=== PATIENT | female | born 1940 | race Two or more races ===

== ENCOUNTER 2017-11-11 09:07 | Outpatient (CLI) | payer OTHER ==
[~2017-11-11 09:07] MED LIST: CALTRATE 600 W-1 TAB PO; DAFLONEX PO; INTRINSI B12-F1 EACH; PRILOSEC20 MG PO; WARFARIN PO; ZOCOR20 MG
== END 2017-11-11 09:26 | disposition home or self-care (01) ==
LOC: LAB 09:07
DX: D68.61 Antiphospholipid syndrome (principal); Z80.3 Family history of malignant neoplasm of breast; E72.11 Homocystinuria; E72.12 Methylenetetrahydrofolate reductase deficiency; E77.8 Other disorders of glycoprotein metabolism; I80.201 Phlebitis and thrombophlebitis of unspecified deep vessels of right lower extremity; I80.291 Phlebitis and thrombophlebitis of other deep vessels of right lower extremity; Q60.0 Renal agenesis, unilateral; Q50.01 Congenital absence of ovary, unilateral; D50.8 Other iron deficiency anemias; D51.8 Other vitamin B12 deficiency anemias; I10 Essential (primary) hypertension; D68.8 Other specified coagulation defects

== ENCOUNTER 2018-03-14 07:11 | Outpatient (CLI) | payer OTHER | END 2018-03-14 07:54 | disposition home or self-care (01) | LOC: LAB 07:11 | DX: Z80.3 Family history of malignant neoplasm of breast (principal); E72.11 Homocystinuria; E72.12 Methylenetetrahydrofolate reductase deficiency; E77.8 Other disorders of glycoprotein metabolism; I80.201 Phlebitis and thrombophlebitis of unspecified deep vessels of right lower extremity; I80.291 Phlebitis and thrombophlebitis of other deep vessels of right lower extremity; Q60.0 Renal agenesis, unilateral; Q50.01 Congenital absence of ovary, unilateral; C16.9 Malignant neoplasm of stomach, unspecified; C25.9 Malignant neoplasm of pancreas, unspecified; C54.1 Malignant neoplasm of endometrium; C56.1 Malignant neoplasm of right ovary; C18.9 Malignant neoplasm of colon, unspecified; R19.5 Other fecal abnormalities ==

== ENCOUNTER 2018-03-17 08:54 | Outpatient (CLI) | payer OTHER | END 2018-03-17 09:06 | disposition home or self-care (01) | LOC: LAB 08:54 | DX: Z80.3 Family history of malignant neoplasm of breast (principal); E72.11 Homocystinuria; E72.12 Methylenetetrahydrofolate reductase deficiency; E77.9 Disorder of glycoprotein metabolism, unspecified; I80.291 Phlebitis and thrombophlebitis of other deep vessels of right lower extremity; Q60.0 Renal agenesis, unilateral; Q50.01 Congenital absence of ovary, unilateral; C16.9 Malignant neoplasm of stomach, unspecified; C25.9 Malignant neoplasm of pancreas, unspecified; C54.1 Malignant neoplasm of endometrium; C56.1 Malignant neoplasm of right ovary; C18.9 Malignant neoplasm of colon, unspecified; R19.5 Other fecal abnormalities ==

== ENCOUNTER 2018-04-29 08:53 | Outpatient (CLI) | payer OTHER | END 2018-04-29 09:05 | disposition home or self-care (01) | LOC: MAMO-SONO 08:53 | DX: Z12.31 Encounter for screening mammogram for malignant neoplasm of breast (principal); Z87.898 Personal history of other specified conditions; N60.11 Diffuse cystic mastopathy of right breast; N60.12 Diffuse cystic mastopathy of left breast; R10.2 Pelvic and perineal pain ==

== ENCOUNTER → 2018-05-06 | Outpatient (CLI) | payer OTHER | END | disposition home or self-care (01) | LOC: NUCLEAR 04-29 11:30 | DX: M81.0 Age-related osteoporosis without current pathological fracture (principal) ==

== ENCOUNTER → 2018-08-18 07:01 | Outpatient (CLI) | payer OTHER | END | disposition home or self-care (01) | LOC: LAB 08-17 12:45 | DX: E72.12 Methylenetetrahydrofolate reductase deficiency (principal); E72.11 Homocystinuria; B39.4 Histoplasmosis capsulati, unspecified; A31.0 Pulmonary mycobacterial infection; Z80.3 Family history of malignant neoplasm of breast; E77.9 Disorder of glycoprotein metabolism, unspecified; I80.201 Phlebitis and thrombophlebitis of unspecified deep vessels of right lower extremity; I80.291 Phlebitis and thrombophlebitis of other deep vessels of right lower extremity; Q60.0 Renal agenesis, unilateral; Q50.01 Congenital absence of ovary, unilateral; D50.8 Other iron deficiency anemias; D51.8 Other vitamin B12 deficiency anemias; I10 Essential (primary) hypertension; R97.0 Elevated carcinoembryonic antigen [CEA] ==

== ENCOUNTER 2018-09-13 07:24 | Emergency (ER) | payer OTHER ==
[~2018-09-13] VITALS: Ht 157.5 cm; Wt 72.6 kg
== END 2018-09-13 11:32 | disposition home or self-care (01) ==
LOC: ER 07:24
DX: S05.11XA Contusion of eyeball and orbital tissues, right eye, initial encounter (principal); W18.09XA Striking against other object with subsequent fall, initial encounter; Y93.89 Activity, other specified; Y92.89 Other specified places as the place of occurrence of the external cause; Y99.8 Other external cause status

== ENCOUNTER 2019-02-16 08:49 | Outpatient (CLI) | payer OTHER | END 2019-02-16 09:05 | disposition home or self-care (01) | LOC: RAD 08:49 | DX: R05 Cough (principal) ==

== ENCOUNTER 2020-07-25 20:31 | Inpatient (IN) | payer OTHER ==
[~2020-07-25] VITALS: Ht 157.5 cm; Wt 72.6 kg
--- NOTE | 2020-07-25 21:15 | NUR ---
PT ALERTA Y ORIENTADA X3 ESFERAS SE LE ORIENTA SOBRE TX Y REFIERE ENTEDER. SE ISAAC MUESTRAS DE JOSELUIS CON TECNICAS ASEPTICAS. PT TOLERA TX.
[2020-07-25] MEDS ORDERED: OMEPRAZOLE 10 MG (21:57)
[2020-07-25] MEDS ORDERED: [UNRECOGNIZED DRUG - OTHER] (21:58)
[2020-07-25] MEDS ORDERED: VITAMINA C (21:59)
[2020-07-25] MEDS ORDERED: [UNRECOGNIZED DRUG - REMARK] (22:01)
--- NOTE | 2020-07-25 22:02 | NUR ---
PTE SE RECIBE POR FIEBRE DOLOR EN EL CUERPO Y CONGESTION NASAL REFIERE PARAMEDOCO FAMILIAR Y PTE.
--- NOTE | 2020-07-25 23:10 | NUR ---
PACIENTE ALERTA Y ORIENTADA X3. EN ARISTIDES CON BARANDAS ELEVADAS ACOMPANADA POR FAMILIAR. PENDIENTE ENTREGA DE MUESTRA DE ORINA. SE MANTIENE BAJO OBSERVACION POR CAMBIOS SIGNIFICATIVOS.
--- NOTE | 2020-07-26 03:10 | NUR ---
PACIENTE ALERTA Y ORIENTADA X3. MIS. THAPA ORIENTA A PACIENTE Y FAMILIAR SOBRE TX A RECIBIR Y REFIRIO ENTENDER. ADMINISTRO MEDICAMENTO ORDENADO POR . RECOLECTO MUESTRA DE ORINA. SE MANTIENE BAJO OBSERVACION POR CAMBIO SIGNIFICATIVOS.
--- NOTE | 2020-07-26 07:21 | NUR ---
SE RECIBE PACIENTE FEMENINA ALERTA Y ORIENTADA EN [place] ESFER[place]. PACIENTE PENDIENTE A CONSULTA CON DR. DENISSE HAMEED. PACIENTE CON VENOPUNCION PATENTE Y RANDY DE DOLOR AL MOMENTO.
[2020-07-27] MEDS ORDERED: VASOFLEX TABLE1 EACH (11:53)
[2020-07-27] MEDS ORDERED: FLONASE16 GM (11:53)
[2020-07-27] MEDS ORDERED: LORATADINE10 MG (11:53)
[2020-07-27] MEDS ORDERED: FOLIC ACID1 MG (11:53)
[2020-07-27] MEDS ORDERED: SIMVASTATIN20 MG (11:53)
[2020-07-27] MEDS ORDERED: NEOTUSS PLUS L474 ML (11:53)
[2020-07-27] MEDS ORDERED: WARFARIN SODIUM6 MG (11:54)
[2020-07-27] MEDS ORDERED: VITAMIN C100 MG (11:55)
== END 2020-07-28 18:45 | disposition home or self-care (01) | DRG 690 ==
LOC: ER 20:31 → SEC-K 07-26 11:31 → MEDJ 07-26 11:31 → MEDI 07-27 13:16 → SEC-K 07-27 13:31 → MEDJ 07-27 17:21
PROVIDERS: ADMIT Internal Medicine; ATTEND Internal Medicine
PROC: BW28ZZZ Computerized Tomography (CT Scan) of Head (ICD-10-PCS; principal; 2020-07-26)
PROC: BW24ZZZ Computerized Tomography (CT Scan) of Chest and Abdomen (ICD-10-PCS; 2020-07-26)
PROC: BT4JZZZ Ultrasonography of Kidneys and Bladder (ICD-10-PCS; 2020-07-26)
DX: N10 Acute pyelonephritis (principal); D68.69 Other thrombophilia; B96.20 Unspecified Escherichia coli [E. coli] as the cause of diseases classified elsewhere; R53.81 Other malaise; E78.00 Pure hypercholesterolemia, unspecified

== ENCOUNTER 2020-09-19 06:55 | Outpatient (CLI) | payer OTHER ==
[~2020-09-19 06:55] MED LIST changes: +FLONASE16 GM; +FOLIC ACID1 MG; +LORATADINE10 MG; +NEOTUSS PLUS L474 ML; +OMEPRAZOLE 10 MG; +SIMVASTATIN20 MG; +VASOFLEX TABLE1 EACH; +VITAMIN C100 MG; +VITAMINA C; +WARFARIN SODIUM6 MG; +[UNRECOGNIZED DRUG - OTHER]; +[UNRECOGNIZED DRUG - REMARK]
== END 2020-09-19 07:00 | disposition home or self-care (01) ==
LOC: LAB 06:55
PROVIDERS: ATTEND Internal Medicine Hematology & Oncology
DX: D68.61 Antiphospholipid syndrome (principal); Z80.3 Family history of malignant neoplasm of breast; E72.12 Methylenetetrahydrofolate reductase deficiency; E77.9 Disorder of glycoprotein metabolism, unspecified; I80.201 Phlebitis and thrombophlebitis of unspecified deep vessels of right lower extremity; I80.291 Phlebitis and thrombophlebitis of other deep vessels of right lower extremity; Q60.0 Renal agenesis, unilateral; Q50.01 Congenital absence of ovary, unilateral

== ENCOUNTER 2020-11-24 08:23 | Outpatient (CLI) | payer OTHER | END 2020-11-24 08:24 | disposition home or self-care (01) | LOC: NUCLEAR 08:23 | PROVIDERS: ATTEND Internal Medicine | DX: I87.2 Venous insufficiency (chronic) (peripheral) (principal) ==

== ENCOUNTER 2021-01-15 14:30 | Emergency (ER) | payer OTHER ==
[~2021-01-15] VITALS: Ht 157.5 cm; Wt 73.5 kg
== END 2021-01-15 20:28 | disposition home or self-care (01) ==
LOC: ER 14:30
DX: N39.0 Urinary tract infection, site not specified (principal); R10.13 Epigastric pain; R10.32 Left lower quadrant pain

== ENCOUNTER → 2021-07-09 09:00 | Outpatient (CLI) | payer OTHER | END | disposition home or self-care (01) | LOC: LAB 09:00 | PROVIDERS: ATTEND Internal Medicine Hematology & Oncology | DX: D50.8 Other iron deficiency anemias (principal); I10 Essential (primary) hypertension; R74.02 Elevation of levels of lactic acid dehydrogenase [LDH]; K76.89 Other specified diseases of liver; E55.9 Vitamin D deficiency, unspecified; D68.8 Other specified coagulation defects; D68.59 Other primary thrombophilia; E72.11 Homocystinuria; R97.0 Elevated carcinoembryonic antigen [CEA]; R97.8 Other abnormal tumor markers; Z80.3 Family history of malignant neoplasm of breast; E72.12 Methylenetetrahydrofolate reductase deficiency; E77.9 Disorder of glycoprotein metabolism, unspecified; I80.201 Phlebitis and thrombophlebitis of unspecified deep vessels of right lower extremity; I80.291 Phlebitis and thrombophlebitis of other deep vessels of right lower extremity; Q60.0 Renal agenesis, unilateral; Q50.01 Congenital absence of ovary, unilateral ==

== ENCOUNTER 2021-08-10 07:43 | Outpatient (CLI) | payer OTHER | END 2021-08-10 07:46 | disposition home or self-care (01) | LOC: SONOGRAMA 07:43 | PROVIDERS: ATTEND Internal Medicine | DX: Z87.440 Personal history of urinary (tract) infections (principal) ==

== ENCOUNTER → 2021-11-03 11:32 | Outpatient (CLI) | payer OTHER | END | disposition home or self-care (01) | LOC: LAB 11:32 | PROVIDERS: ATTEND Internal Medicine | DX: I82.891 Chronic embolism and thrombosis of other specified veins (principal) ==

== ENCOUNTER → 2021-11-03 | Outpatient (CLI) | payer OTHER | END | disposition home or self-care (01) | LOC: RAD 10:57 | PROVIDERS: ATTEND Internal Medicine | DX: M25.561 Pain in right knee (principal) ==

== ENCOUNTER 2022-03-01 09:31 | Outpatient (CLI) | payer OTHER | END 2022-03-01 09:37 | disposition home or self-care (01) | LOC: SONOGRAMA 09:31 | PROVIDERS: ATTEND Internal Medicine Hematology & Oncology | DX: E04.2 Nontoxic multinodular goiter (principal); Z80.3 Family history of malignant neoplasm of breast; D68.61 Antiphospholipid syndrome; E72.12 Methylenetetrahydrofolate reductase deficiency; E77.9 Disorder of glycoprotein metabolism, unspecified; I80.201 Phlebitis and thrombophlebitis of unspecified deep vessels of right lower extremity; I80.291 Phlebitis and thrombophlebitis of other deep vessels of right lower extremity; Q60.0 Renal agenesis, unilateral; Q50.01 Congenital absence of ovary, unilateral ==

== ENCOUNTER → 2022-07-01 07:26 | Outpatient (CLI) | payer OTHER ==
[~2022-07-01 07:26] MED LIST changes: +TUSNEL DIABETI118 ML; +WARFARIN SODIUM1 MG
== END | disposition home or self-care (01) ==
LOC: LAB 07:26
PROVIDERS: ATTEND Internal Medicine Hematology & Oncology
DX: D68.8 Other specified coagulation defects (principal)

== ENCOUNTER 2022-07-06 10:14 | Outpatient (CLI) | payer OTHER | END 2022-07-06 10:24 | disposition home or self-care (01) | LOC: RAD 10:14 | PROVIDERS: ATTEND Internal Medicine Hematology & Oncology | DX: S79.821A Other specified injuries of right thigh, initial encounter (principal); Z80.3 Family history of malignant neoplasm of breast; E72.11 Homocystinuria; E72.12 Methylenetetrahydrofolate reductase deficiency; E77.9 Disorder of glycoprotein metabolism, unspecified; I80.201 Phlebitis and thrombophlebitis of unspecified deep vessels of right lower extremity; I80.291 Phlebitis and thrombophlebitis of other deep vessels of right lower extremity; Q60.0 Renal agenesis, unilateral; Q50.01 Congenital absence of ovary, unilateral ==

== ENCOUNTER → 2022-07-06 11:05 | Outpatient (CLI) | payer OTHER | END | disposition home or self-care (01) | LOC: LAB 11:05 | PROVIDERS: ATTEND Internal Medicine Hematology & Oncology | DX: D68.8 Other specified coagulation defects (principal) ==

== ENCOUNTER 2022-07-20 10:41 | Outpatient (CLI) | payer OTHER | END 2022-07-20 10:42 | disposition home or self-care (01) | LOC: LAB 10:41 | PROVIDERS: ATTEND Internal Medicine Hematology & Oncology | DX: Z80.3 Family history of malignant neoplasm of breast (principal); D68.61 Antiphospholipid syndrome; E77.9 Disorder of glycoprotein metabolism, unspecified; I80.201 Phlebitis and thrombophlebitis of unspecified deep vessels of right lower extremity; I80.291 Phlebitis and thrombophlebitis of other deep vessels of right lower extremity; Q30.0 Choanal atresia; Q50.01 Congenital absence of ovary, unilateral; R97.0 Elevated carcinoembryonic antigen [CEA]; R97.8 Other abnormal tumor markers; K76.89 Other specified diseases of liver; D50.8 Other iron deficiency anemias; E55.9 Vitamin D deficiency, unspecified; R74.02 Elevation of levels of lactic acid dehydrogenase [LDH]; D68.8 Other specified coagulation defects ==

== ENCOUNTER 2022-07-22 08:35 | Emergency (ER) | payer OTHER ==
[~2022-07-22] VITALS: Ht 157.5 cm; Wt 72.6 kg
[2022-07-22] MEDS ORDERED: NORFLEX100MG PO (11:52)
== END 2022-07-22 12:31 | disposition home or self-care (01) ==
LOC: ER 08:35
DX: M54.9 Dorsalgia, unspecified (principal)

== ENCOUNTER → 2022-07-25 11:52 | Outpatient (CLI) | payer OTHER ==
[~2022-07-25 11:52] MED LIST changes: +NORFLEX100MG PO
== END | disposition home or self-care (01) ==
LOC: LAB 11:52
PROVIDERS: ATTEND Internal Medicine Hematology & Oncology
DX: D68.8 Other specified coagulation defects (principal)

== ENCOUNTER → 2022-08-25 | Emergency (ER) | payer OTHER ==
[~2022-08-25] VITALS: Ht 154.9 cm; Wt 73.0 kg
[~2022-08-25] MED LIST changes: +FOLIC ACID1 MG PO; +PANTOPRAZOLE SO40 MG PO; +SIMVASTATIN20 MG PO; +WARFARIN SODIUM6 MG PO
== END | disposition home or self-care (01) ==
LOC: ER 15:53
DX: D68.318 Other hemorrhagic disorder due to intrinsic circulating anticoagulants, antibodies, or inhibitors (principal); M79.641 Pain in right hand

== ENCOUNTER 2022-10-11 10:07 | Emergency (ER) | payer OTHER ==
[~2022-10-11] VITALS: Ht 157.5 cm; Wt 72.6 kg
[2022-10-11] MEDS ORDERED: WARFARIN SODIUM5 MG PO (10:48)
[2022-10-11] MEDS ORDERED: VASOFLEX D1 CA1 EACH PO (10:49)
[2022-10-11] MEDS ORDERED: INTEGRA F CAPS1 EAC1 PO (10:49)
[2022-10-11] MEDS ORDERED: [UNRECOGNIZED DRUG - OTHER] (10:49)
== END 2022-10-11 16:10 | disposition home or self-care (01) ==
LOC: ER 10:07
DX: K44.9 Diaphragmatic hernia without obstruction or gangrene (principal); R53.81 Other malaise; I10 Essential (primary) hypertension; E11.9 Type 2 diabetes mellitus without complications

== ENCOUNTER 2022-10-15 08:54 | Emergency (ER) | payer OTHER ==
[~2022-10-15] VITALS: Ht 154.9 cm; Wt 72.6 kg
[~2022-10-15 08:54] MED LIST changes: +INTEGRA F CAPS1 EAC1 PO; +VASOFLEX D1 CA1 EACH PO; +WARFARIN SODIUM5 MG PO; +[UNRECOGNIZED DRUG - OTHER]
== END 2022-10-15 13:10 | disposition home or self-care (01) ==
LOC: ER 08:54
DX: R05.9 Cough, unspecified (principal); Z86.72 Personal history of thrombophlebitis; K44.9 Diaphragmatic hernia without obstruction or gangrene; J44.9 Chronic obstructive pulmonary disease, unspecified

== ENCOUNTER 2022-10-18 16:55 | Emergency (ER) | payer OTHER ==
[~2022-10-18] VITALS: Ht 162.6 cm; Wt 74.8 kg
[2022-10-18] MEDS ORDERED: VASOFLEX D1 CA1 EACH PO (17:08)
== END 2022-10-18 23:17 | disposition home or self-care (01) ==
LOC: ER 16:55
DX: U07.1 COVID-19 (principal); Z86.72 Personal history of thrombophlebitis; Z86.711 Personal history of pulmonary embolism

== ENCOUNTER 2022-11-16 09:46 | Outpatient (CLI) | payer OTHER | END 2022-11-16 09:47 | disposition home or self-care (01) | LOC: LAB 09:46 | PROVIDERS: ATTEND Internal Medicine Hematology & Oncology | DX: D68.8 Other specified coagulation defects (principal); D50.8 Other iron deficiency anemias; I10 Essential (primary) hypertension; R74.02 Elevation of levels of lactic acid dehydrogenase [LDH]; K76.89 Other specified diseases of liver; D51.8 Other vitamin B12 deficiency anemias; E72.11 Homocystinuria; Z80.3 Family history of malignant neoplasm of breast; E77.9 Disorder of glycoprotein metabolism, unspecified; I80.201 Phlebitis and thrombophlebitis of unspecified deep vessels of right lower extremity; I80.291 Phlebitis and thrombophlebitis of other deep vessels of right lower extremity; Q60.0 Renal agenesis, unilateral; Q50.01 Congenital absence of ovary, unilateral ==

== ENCOUNTER 2022-12-27 10:32 | Outpatient (CLI) | payer OTHER | END 2022-12-27 10:42 | disposition home or self-care (01) | LOC: LAB 10:32 | PROVIDERS: ATTEND Internal Medicine Hematology & Oncology | DX: D68.8 Other specified coagulation defects (principal); F80.9 Developmental disorder of speech and language, unspecified ==

== ENCOUNTER 2023-01-04 10:27 | Emergency (ER) | payer OTHER ==
[~2023-01-04] VITALS: Ht 167.6 cm; Wt 68.0 kg
== END 2023-01-04 20:19 | disposition home or self-care (01) ==
LOC: ER 10:27
DX: R55 Syncope and collapse (principal); Z20.822 Contact with and (suspected) exposure to COVID-19

== ENCOUNTER 2023-02-03 00:35 | Emergency (ER) | payer OTHER ==
[~2023-02-03] VITALS: Ht 152.4 cm; Wt 72.6 kg
== END 2023-02-03 08:46 ==
LOC: ER 00:35
PROVIDERS: General Practice
DX: R04.2 Hemoptysis (principal)

== ENCOUNTER 2023-03-03 15:59 | Emergency (ER) | payer OTHER ==
[~2023-03-03] VITALS: Ht 162.6 cm; Wt 72.6 kg
[2023-03-03] MEDS ORDERED: JANTOVEN4 MG PO (16:46)
[2023-03-03 18:49] LABS: HEMOGLOBIN 11.7 g/dL (12.0-15.00); MEAN CELL VOLUME 90.8 fL (80.00-100.00); MEAN CORPUSCULAR HEMOGLOBIN 30.3 pg (27.00-32.0); MEAN CORPUSCULAR HGB CONC 33.4 g/dl (32.0-36.0); PLATELET COUNT 414 K/uL (150-450); RED BLOOD COUNT 3.86 M/uL (4.00-6.00); RED CELL DISTRIBUTION WIDTH 15.7 % (11.5-14.5)
[2023-03-03 19:13] LABS: ALBUMIN 3.3 gm/dL (3.4-5.0); BILIRUBIN TOTAL 0.36 mg/dL (0.3-1.2); CALCIUM 9.2 mg/dL (8.5-10.1); CREATININE SERUM 0.79 mg/dL (0.55-1.02); GFR 69.5; GLOBULINA 4.4 G/DL (2.4-3.5); POTASSIUM 4.04 mEq/L (3.5-5.1); TOTAL PROTEIN 7.7 gm/dL (6.4-8.2)
[2023-03-03] MEDS ORDERED: LEVSIN/SL0.125 MG SL (19:19)
[2023-03-03 21:02] LABS: INR 2.04; PARTIAL THROMBOPLASTIN TIME 37.4 SECONDS (22.0-34.0)
[2023-03-03 21:04] LABS: ob NEGATIVE (NEGATIVE)
[2023-03-03 21:05] LABS: PROTHROMBIN TIME 20.3 SECONDS (9.0-11.5)
== END 2023-03-03 22:35 | disposition home or self-care (01) ==
LOC: ER 16:00
PROVIDERS: General Practice
DX: K92.1 Melena (principal); K92.2 Gastrointestinal hemorrhage, unspecified

== ENCOUNTER 2023-05-03 15:32 | Emergency (ER) | payer OTHER ==
[~2023-05-03] VITALS: Ht 157.5 cm; Wt 81.6 kg
[~2023-05-03 15:32] MED LIST changes: +JANTOVEN4 MG PO; +LEVSIN/SL0.125 MG SL
[2023-05-03 17:55] LABS: HEMATOCRIT 34.8 % (36.0-45.00); HEMOGLOBIN 11.2 g/dL (12.0-15.00); MEAN CORPUSCULAR HEMOGLOBIN 28.6 pg (27.00-32.0); MEAN CORPUSCULAR HGB CONC 32.2 g/dl (32.0-36.0); PLATELET COUNT 482 K/uL (150-450); RED BLOOD COUNT 3.91 M/uL (4.00-6.00)
[2023-05-03 18:23] LABS: ALBUMIN 3.3 gm/dL (3.4-5.0); BILIRUBIN TOTAL 0.32 mg/dL (0.3-1.2); CALCIUM 9.2 mg/dL (8.5-10.1); CREATININE SERUM 0.93 mg/dL (0.55-1.02); GFR 57.58; GLOBULINA 4.5 G/DL (2.4-3.5); POTASSIUM 4.14 mEq/L (3.5-5.1); TOTAL PROTEIN 7.8 gm/dL (6.4-8.2)
== END 2023-05-03 21:20 | disposition home or self-care (01) ==
LOC: ER 15:32
PROVIDERS: General Practice
DX: K52.89 Other specified noninfective gastroenteritis and colitis (principal); Z20.822 Contact with and (suspected) exposure to COVID-19

== ENCOUNTER 2023-06-23 08:40 | Emergency (ER) | payer OTHER ==
[~2023-06-23] VITALS: Ht 160 cm; Wt 65.8 kg
[2023-06-23 10:17] LABS: HEMATOCRIT 30.1 % (36.0-45.00); HEMOGLOBIN 9.8 g/dL (12.0-15.00); MEAN CELL VOLUME 86.4 fL (80.00-100.00); MEAN CORPUSCULAR HEMOGLOBIN 28.2 pg (27.00-32.0); MEAN CORPUSCULAR HGB CONC 32.6 g/dl (32.0-36.0); PLATELET COUNT 363 K/uL (150-450); RED BLOOD COUNT 3.48 M/uL (4.00-6.00); RED CELL DISTRIBUTION WIDTH 16.8 % (11.5-14.5)
[2023-06-23 10:49] LABS: BILIRUBIN TOTAL 0.47 mg/dL (0.3-1.2); CALCIUM 8.7 mg/dL (8.5-10.1); CREATININE SERUM 0.72 mg/dL (0.55-1.02); GFR 77.36; GLOBULINA 3.9 G/DL (2.4-3.5); POTASSIUM 3.93 mEq/L (3.5-5.1); TOTAL PROTEIN 6.9 gm/dL (6.4-8.2)
[2023-06-23 10:51] LABS: INR 1.99; PARTIAL THROMBOPLASTIN TIME 36.9 SECONDS (22.0-34.0)
[2023-06-23 10:52] LABS: PROTHROMBIN TIME 19.9 SECONDS (9.0-11.5)
== END 2023-06-23 18:48 | disposition home or self-care (01) ==
LOC: ER 08:40
PROVIDERS: Emergency Medicine
DX: R42 Dizziness and giddiness (principal); D86.89 Sarcoidosis of other sites; D68.8 Other specified coagulation defects; D64.9 Anemia, unspecified; J40 Bronchitis, not specified as acute or chronic; Z20.822 Contact with and (suspected) exposure to COVID-19

== ENCOUNTER → 2023-07-05 11:01 | Outpatient (CLI) | payer OTHER ==
[2023-07-05 12:40] LABS: HEMATOCRIT 33.9 % (36.0-45.00); HEMOGLOBIN 11.1 g/dL (12.0-15.00); MEAN CELL VOLUME 85.1 fL (80.00-100.00); MEAN CORPUSCULAR HEMOGLOBIN 27.8 pg (27.00-32.0); MEAN CORPUSCULAR HGB CONC 32.6 g/dl (32.0-36.0); PLATELET COUNT 426 K/uL (150-450); RED BLOOD COUNT 3.98 M/uL (4.00-6.00); RED CELL DISTRIBUTION WIDTH 17.6 % (11.5-14.5)
[2023-07-05 12:49] LABS: % SATURACION 16.2 % (15-50); FERRITIN 56.7 NG/ML (8-252)
[2023-07-05 13:56] LABS: INR 2.96
[2023-07-05 14:25] LABS: PROTHROMBIN TIME 28.7 SECONDS (9.0-11.5)
== END | disposition home or self-care (01) ==
LOC: LAB 11:01
PROVIDERS: ATTEND Internal Medicine Hematology & Oncology
DX: D64.9 Anemia, unspecified (principal); E83.10 Disorder of iron metabolism, unspecified; Z12.11 Encounter for screening for malignant neoplasm of colon; D68.8 Other specified coagulation defects

== ENCOUNTER 2023-08-17 08:03 | Emergency (ER) | payer OTHER ==
[~2023-08-17] VITALS: Ht 152.4 cm; Wt 65.8 kg
[2023-08-17] MEDS ORDERED: 0.9 % SODIUM CHLORIDE 1,000 ML IV STA (08:36)
[2023-08-17] MEDS ORDERED: LEVALBUTEROL HCL 1.25 MG/3 ML SOLUTION IH SCH (08:45)
[2023-08-17 09:11] LABS: HEMATOCRIT 32.4 % (36.0-45.00); HEMOGLOBIN 10.9 g/dL (12.0-15.00); MEAN CELL VOLUME 87.6 fL (80.00-100.00); MEAN CORPUSCULAR HEMOGLOBIN 29.6 pg (27.00-32.0); MEAN CORPUSCULAR HGB CONC 33.8 g/dl (32.0-36.0); PLATELET COUNT 405 K/uL (150-450); RED BLOOD COUNT 3.69 M/uL (4.00-6.00); RED CELL DISTRIBUTION WIDTH 19.6 % (11.5-14.5)
[2023-08-17] MEDS ORDERED: OSELTAMIVIR PHOSPHATE 75 MG CAPSULE PO STA (09:17)
[2023-08-17 09:30] LABS: ALBUMIN 3.1 gm/dL (3.4-5.0); BILIRUBIN TOTAL 0.34 mg/dL (0.3-1.2); BILIRUBIN,CONJUGATED 0.12 mg/dL (0.0-0.2); BILIRUBIN,UNCONJUGATED 0.22 mg/dL (0.0-0.6); CALCIUM 8.8 mg/dL (8.5-10.1); CREATININE SERUM 0.74 mg/dL (0.55-1.02); GFR 74.95; POTASSIUM 3.44 mEq/L (3.5-5.1); TOTAL PROTEIN 7.4 gm/dL (6.4-8.2)
[2023-08-17 09:35] LABS: INR 2.43
[2023-08-17 09:38] LABS: PARTIAL THROMBOPLASTIN TIME 49.3 SECONDS (22.0-34.0); PROTHROMBIN TIME 23.9 SECONDS (9.0-11.5)
== END 2023-08-17 13:17 | disposition home or self-care (01) ==
LOC: ER 08:03
PROVIDERS: General Practice
DX: J10.1 Influenza due to other identified influenza virus with other respiratory manifestations (principal); Z20.822 Contact with and (suspected) exposure to COVID-19; R00.2 Palpitations
CPT/HCPCS: 36415; 71045; 93005; 94640; 96365; 99284; J3490

== ENCOUNTER 2023-12-01 11:04 | Outpatient (CLI) | payer OTHER | END 2023-12-01 11:05 | disposition home or self-care (01) | LOC: NUCLEAR 11:04 | PROVIDERS: ATTEND Internal Medicine Hematology & Oncology | DX: I70.213 Atherosclerosis of native arteries of extremities with intermittent claudication, bilateral legs (principal); D68.61 Antiphospholipid syndrome; E72.12 Methylenetetrahydrofolate reductase deficiency; E77.9 Disorder of glycoprotein metabolism, unspecified; I80.201 Phlebitis and thrombophlebitis of unspecified deep vessels of right lower extremity; I80.291 Phlebitis and thrombophlebitis of other deep vessels of right lower extremity; Q60.0 Renal agenesis, unilateral; Q50.01 Congenital absence of ovary, unilateral ==

== ENCOUNTER 2023-12-02 10:38 | Outpatient (CLI) | payer OTHER | END 2023-12-02 10:39 | disposition home or self-care (01) | LOC: NUCLEAR 10:38 | PROVIDERS: ATTEND Internal Medicine Hematology & Oncology | DX: I80.201 Phlebitis and thrombophlebitis of unspecified deep vessels of right lower extremity (principal); I80.291 Phlebitis and thrombophlebitis of other deep vessels of right lower extremity; I70.213 Atherosclerosis of native arteries of extremities with intermittent claudication, bilateral legs ==

== ENCOUNTER 2023-12-23 13:18 | Emergency (ER) | payer OTHER ==
[~2023-12-23] VITALS: Ht 152.4 cm; Wt 59.0 kg
[2023-12-23] MEDS ORDERED: SIMVASTATIN5 MG (13:26)
[2023-12-23 14:26] LABS: HEMOGLOBIN 11.9 g/dL (12.0-15.00); MEAN CELL VOLUME 92.5 fL (80.00-100.00); MEAN CORPUSCULAR HEMOGLOBIN 30.5 pg (27.00-32.0); PLATELET COUNT 418 K/uL (150-450); RED BLOOD COUNT 3.89 M/uL (4.00-6.00); RED CELL DISTRIBUTION WIDTH 15.4 % (11.5-14.5)
[2023-12-23 15:02] LABS: ALBUMIN 3.3 gm/dL (3.4-5.0); BILIRUBIN TOTAL 0.43 mg/dL (0.3-1.2); CALCIUM 9.3 mg/dL (8.5-10.1); CREATININE SERUM 0.84 mg/dL (0.55-1.02); GFR 64.59; GLOBULINA 3.8 G/DL (2.4-3.5); POTASSIUM 4.13 mEq/L (3.5-5.1); TOTAL PROTEIN 7.1 gm/dL (6.4-8.2)
== END 2023-12-23 17:55 | disposition home or self-care (01) ==
LOC: ER 13:18
PROVIDERS: Emergency Medicine
DX: R53.1 Weakness (principal); I95.9 Hypotension, unspecified; Z20.822 Contact with and (suspected) exposure to COVID-19; I10 Essential (primary) hypertension

== ENCOUNTER → 2024-02-19 08:53 | Outpatient (CLI) | payer OTHER ==
[~2024-02-19 08:53] MED LIST changes: +SIMVASTATIN5 MG
[2024-02-19 10:00] LABS: HEMATOCRIT 33.9 % (36.0-45.00); HEMOGLOBIN 11.3 g/dL (12.0-15.00); MEAN CORPUSCULAR HEMOGLOBIN 30.6 pg (27.00-32.0); MEAN CORPUSCULAR HGB CONC 33.3 g/dl (32.0-36.0); PLATELET COUNT 402 K/uL (150-450); RED BLOOD COUNT 3.68 M/uL (4.00-6.00)
[2024-02-19 10:37] LABS: ALBUMIN 3.1 gm/dL (3.4-5.0); BILIRUBIN TOTAL 0.45 mg/dL (0.3-1.2); CALCIUM 8.9 mg/dL (8.5-10.1); CREATININE SERUM 0.63 mg/dL (0.55-1.02); GFR 90.03; GLOBULINA 3.8 G/DL (2.4-3.5); POTASSIUM 4.15 mEq/L (3.5-5.1); TOTAL PROTEIN 6.9 gm/dL (6.4-8.2)
[2024-02-19 10:54] LABS: INR 1.79; PARTIAL THROMBOPLASTIN TIME 36.6 SECONDS (22.0-34.0)
[2024-02-19 11:02] LABS: PROTHROMBIN TIME 18.7 SECONDS (9.0-11.5)
[2024-02-19 11:07] LABS: FOLIC ACID > 20.00 ng/ml (4.78-20)
[2024-02-20 09:08] LABS: CA 125 31.9 U/mL (0.0-38.1); CA 15-3 19.4 U/mL (0.0-25.0); HOMOCYSTEINE 6.7 umol/L (0.0-21.3)
== END | disposition home or self-care (01) ==
LOC: LAB 08:53
PROVIDERS: ATTEND Internal Medicine Hematology & Oncology
DX: E11.39 Type 2 diabetes mellitus with other diabetic ophthalmic complication (principal); I15.8 Other secondary hypertension; D68.32 Hemorrhagic disorder due to extrinsic circulating anticoagulants; D69.9 Hemorrhagic condition, unspecified; Z80.3 Family history of malignant neoplasm of breast; D68.61 Antiphospholipid syndrome; E72.12 Methylenetetrahydrofolate reductase deficiency; E77.9 Disorder of glycoprotein metabolism, unspecified; I80.201 Phlebitis and thrombophlebitis of unspecified deep vessels of right lower extremity; I80.291 Phlebitis and thrombophlebitis of other deep vessels of right lower extremity; Q60.0 Renal agenesis, unilateral; Q50.01 Congenital absence of ovary, unilateral; I70.213 Atherosclerosis of native arteries of extremities with intermittent claudication, bilateral legs; D50.8 Other iron deficiency anemias; R74.02 Elevation of levels of lactic acid dehydrogenase [LDH]; K76.89 Other specified diseases of liver; D51.8 Other vitamin B12 deficiency anemias; D68.8 Other specified coagulation defects; R97.0 Elevated carcinoembryonic antigen [CEA]

== ENCOUNTER 2024-03-03 14:00 | Outpatient (CLI) | payer OTHER ==
[2024-03-03 14:21] LABS: PH,URINE 5.5 (5.0-8.0); URINE APPEARANCE Clear; URINE BILIRRUBIN Negative (NEGATIVE); URINE BLOOD Trace; URINE COLOR Yellow; URINE GLUCOSE Negative (NEGATIVE); URINE KETONE Negative (NEGATIVE); URINE LEUKOCYTE Moderate; URINE NITRATE Negative; URINE PROTEIN Negative (NEGATIVE); URINE UROBILINOGEN 0.2 E.U./dl
[2024-03-03 14:25] LABS: URINE EPITHELIAL CELLS 11.1 uL (0.0-38.8); URINE RBC 2.1 uL (0.0-20.8)
[2024-03-03 14:32] LABS: URINE BACTERIA > 9821.5 uL (0.0-1933); URINE CAST 0.76 uL (0.0-1.40)
== END 2024-03-03 14:12 | disposition home or self-care (01) ==
LOC: LAB 14:00
PROVIDERS: ATTEND Internal Medicine
DX: N39.0 Urinary tract infection, site not specified (principal); I10 Essential (primary) hypertension

== ENCOUNTER → 2024-03-30 | Emergency (ER) | payer OTHER ==
[~2024-03-30] VITALS: Ht 157.5 cm; Wt 61.7 kg
[~2024-03-30] MED LIST changes: +CEFTRIAXONE SODIUM 1,000 MG VIAL IV ONE; +CIPRO500 MG PO; +FAMOtidine 10 MG/ML (4ML VIAL) IV PUSH ONE; +KETOROLAC TROMETHAMINE 30 MG VIAL IM ONE; +METRONIDAZOLE500 MG PO; +PEPCID AC20 MG PO
[2024-03-30 17:45] LABS: HEMATOCRIT 36.9 % (36.0-45.00); MEAN CELL VOLUME 92.6 fL (80.00-100.00); MEAN CORPUSCULAR HEMOGLOBIN 30.1 pg (27.00-32.0); MEAN CORPUSCULAR HGB CONC 32.5 g/dl (32.0-36.0); PLATELET COUNT 436 K/uL (150-450); RED BLOOD COUNT 3.99 M/uL (4.00-6.00); RED CELL DISTRIBUTION WIDTH 16.9 % (11.5-14.5)
[2024-03-30 19:00] LABS: ALBUMIN 3.2 gm/dL (3.4-5.0); BILIRUBIN TOTAL 0.54 mg/dL (0.3-1.2); CALCIUM 9.5 mg/dL (8.5-10.1); CREATININE SERUM 0.73 mg/dL (0.55-1.02); GFR 75.95; GLOBULINA 4.3 G/DL (2.4-3.5); POTASSIUM 4.57 mEq/L (3.5-5.1); TOTAL PROTEIN 7.5 gm/dL (6.4-8.2)
[2024-03-30 19:46] LABS: PH,URINE 5.5 (5.0-8.0); URINE APPEARANCE Clear; URINE BILIRRUBIN Negative (NEGATIVE); URINE BLOOD Trace; URINE COLOR Yellow; URINE GLUCOSE Negative (NEGATIVE); URINE KETONE Negative (NEGATIVE); URINE LEUKOCYTE Moderate; URINE NITRATE Negative; URINE PROTEIN Negative (NEGATIVE); URINE UROBILINOGEN 0.2 E.U./dl
[2024-03-30 19:47] LABS: URINE EPITHELIAL CELLS 17.4 uL (0.0-38.8); URINE RBC 17.4 uL (0.0-20.8); URINE WBC 118.8 uL (0.0-23.2)
[2024-03-30 19:52] LABS: URINE BACTERIA > 9821.5 uL (0.0-1933); URINE CAST 0.61 uL (0.0-1.40)
== END | disposition home or self-care (01) ==
LOC: ER 13:43
PROVIDERS: General Practice
DX: R10.32 Left lower quadrant pain (principal); K57.30 Diverticulosis of large intestine without perforation or abscess without bleeding
CPT/HCPCS: 36415; 74176; 96365; 99284; J0696

== ENCOUNTER 2025-04-26 07:29 | Outpatient (CLI) | payer OTHER ==
[~2025-04-26 07:29] MED LIST changes: -CEFTRIAXONE SODIUM 1,000 MG VIAL IV ONE; +DAFLONEX-XL 11300 MG PO; -FAMOtidine 10 MG/ML (4ML VIAL) IV PUSH ONE; +FOLIC ACID0.8 M1 PO; +INTEGRA CAPSUL1 EACH PO; -KETOROLAC TROMETHAMINE 30 MG VIAL IM ONE; +VITREXYL CAP1000 MCG PO
[2025-04-26 09:10] LABS: BASO % 0.5 % (0.1-1.2); EOS # 0.12 (0.04-0.54); EOS % 1.9 % (0.7-7.0); LYMPH # 2.16 (1.18-3.74); LYMPH % 34.6 % (19.3-53.1); MEAN PLATELET VOLUME 9.00 fl (9.4-12.4); MONO # 0.51 (0.24-0.82); MONO % 8.2 % (4.7-12.5); NEUT # 3.34 (1.56-6.13); NEUT % 53.5 % (34.0-71.1); RED CELL DISTRIBUTION WIDTH 14.5 % (11.6-14.4)
[2025-04-26 09:45] LABS: INR 1.8
[2025-04-26 10:18] LABS: % SATURACION 39.2 % (15-50); ALT/SGPT 27.0 U/L (12-78); AST/SGOT 15.0 U/L (15-37); BILIRUBIN TOTAL 0.62 mg/dL (0.3-1.2); BUN CREA RATIO 23.0 (7.0-25.0); CREATININE SERUM 0.7 mg/dL (0.55-1.02); FE 99.0 ug/dl (50-170); GFR 79.53; GLOBULINA 3.6 G/DL (2.4-3.5); GLUCOSE FASTING 85.0 mg/dL (65-100); LDH 130.0 U/L (84-246); OSMOLALITY SERUM 289.0 MOSM/KG (275-295)
[2025-04-26 13:05] LABS: FOLIC ACID > 20.00 ng/ml (4.78-20); VITAMIN D3 25 HYDROXY 49.88 ng/ml (30-120)
[2025-04-27 08:10] LABS: CA 125 30.5 U/mL (0.0-38.1); CA 15-3 20.6 U/mL (0.0-25.0); CA 19-9 26.0 U/mL (0-35)
[2025-04-27 10:07] LABS: HOMOCYSTEINE 7.2 umol/L (0.0-21.3)
== END 2025-04-26 07:37 | disposition home or self-care (01) ==
LOC: LAB 07:29
PROVIDERS: ATTEND Internal Medicine Hematology & Oncology
DX: D50.8 Other iron deficiency anemias (principal); I10 Essential (primary) hypertension; R74.02 Elevation of levels of lactic acid dehydrogenase [LDH]; K76.89 Other specified diseases of liver; E55.9 Vitamin D deficiency, unspecified; D68.8 Other specified coagulation defects; D68.59 Other primary thrombophilia; E72.11 Homocystinuria; C50.919 Malignant neoplasm of unspecified site of unspecified female breast; R97.8 Other abnormal tumor markers; C25.9 Malignant neoplasm of pancreas, unspecified; C56.9 Malignant neoplasm of unspecified ovary; R97.1 Elevated cancer antigen 125 [CA 125]; R97.0 Elevated carcinoembryonic antigen [CEA]; Z80.3 Family history of malignant neoplasm of breast; E72.12 Methylenetetrahydrofolate reductase deficiency; E77.9 Disorder of glycoprotein metabolism, unspecified; I80.201 Phlebitis and thrombophlebitis of unspecified deep vessels of right lower extremity; I80.291 Phlebitis and thrombophlebitis of other deep vessels of right lower extremity; Q60.0 Renal agenesis, unilateral; Q50.01 Congenital absence of ovary, unilateral; I70.213 Atherosclerosis of native arteries of extremities with intermittent claudication, bilateral legs; Z12.11 Encounter for screening for malignant neoplasm of colon

== ENCOUNTER 2025-05-06 10:32 | Outpatient (CLI) | payer OTHER ==
[2025-05-06 11:16] LABS: URINE APPEARANCE Clear; URINE BILIRRUBIN Negative (NEGATIVE); URINE BLOOD Negative; URINE COLOR Yellow; URINE GLUCOSE Negative (NEGATIVE); URINE KETONE Negative (NEGATIVE); URINE LEUKOCYTE Small; URINE NITRATE Negative; URINE PROTEIN Negative (NEGATIVE); URINE UROBILINOGEN 0.2 E.U./dl
[2025-05-06 11:19] LABS: URINE BACTERIA 393.4 uL (0.0-1933); URINE EPITHELIAL CELLS 10.2 uL (0.0-38.8); URINE RBC 8.9 uL (0.0-20.8); URINE WBC 47.0 uL (0.0-23.2)
[2025-05-06 12:08] LABS: URINE CAST 0.14 uL (0.0-1.40)
[2025-05-06 12:10] LABS: ob NEGATIVE (NEGATIVE)
== END 2025-05-06 10:46 | disposition home or self-care (01) ==
LOC: LAB 10:32
PROVIDERS: ATTEND Internal Medicine Hematology & Oncology
DX: I10 Essential (primary) hypertension (principal); Z12.11 Encounter for screening for malignant neoplasm of colon